=== PATIENT | female | born 1980 | race Caucasian/White ===

== ENCOUNTER 2019-10-08 16:10 | Emergency (ER) | payer BC, SELFPAY ==
[2019-10-08 16:18] VITALS: BP 140/87; PULSE 86; RESP 16; TEMP 37.1; O2SAT 100; BMI 23.3
--- NOTE | 2019-10-08 16:28 | DI.CT.S_ITS ---
PROCEDURE: CT HEAD/BRAIN WO CON INDICATIONS: fell off moving horse about 52 inch height, no LOC TECHNIQUE: Noncontrast 4.5 mm thick angled axial sections acquired from the foramen magnum to the vertex, with coronal and sagittal reformats. For radiation dose reduction, the following was used: automated exposure control, adjustment of mA and/or kV according to patient size. COMPARISON: None. FINDINGS: Image quality: Excellent. CSF spaces: Basal cisterns are patent. No extra-axial fluid collections. Ventricles are normal in size and shape. Brain: No midline shift. No intracranial masses or hemorrhage. Ford-white matter interface is normal. Skull and face: Calvarium and visualized facial bones are intact, without suspicious lesions. Sinuses: Visualized sinuses and mastoids are clear. IMPRESSION: No CT evidence of acute intracranial pathology. Dictated by: Jason Greene M.D. on 10/08/2019 at 16:56 Approved by: Jason Greene M.D. on 10/08/2019 at 16:57
--- NOTE | 2019-10-08 16:30 | ED.FALL ---
HPI - Fall <SANJIV ToureP - Last Filed: 10/08/19 17:39> General Chief Complaint: Fall Stated Complaint: fall from horse,hit head, thinks concussion Time Seen by Provider: 10/08/19 16:14 Source: patient Mode of arrival: Ambulatory Limitations: no limitations History of Present Illness HPI Narrative: This is a 38-year-old female, nonsmoker, who presents to ED with a friend after she fell off from a horse (about 52 inch height) that she was riding. According to her friend, patient fell off on a horse and landed on her right side of the body. The patient was wearing a helmet and helmet had a visor which had been shifted and had a clump of grass stuck in the front of the helmet. Patient and her friend does not think she had loss of consciousness if anything lasted seconds, denies vomiting. Patient reports feeling dizzy and oozy with ambulation. Patient reports posterior all headache. Patient denies pain in her neck, extremities, back, hips. Patient denies breathing difficulty, chest pain. Patient currently has cold symptoms and had taken Advil this morning. Patient currently is not on anticoagulant or anti platelets. Related Data Home Medications Medication Instructions Recorded Confirmed ascorbic acid (vitamin C) 500 mg PO QDAY #0 04/05/17 ferrous sulfate [Iron (ferrous QDAY #0 04/05/17 sulfate)] Previous Rx's Medication Instructions Recorded penicillin V potassium 500 mg PO TID #30 tab 04/05/17 Allergies Allergy/AdvReac Type Severity Reaction Status Date / Time Hydrocodone Allergy Unknown Uncoded 10/08/19 16:21 Review of Systems <Nash Humphries TUBE ROLLER - Last Filed: 10/08/19 17:39> Review of Systems Narrative: General: Denies fever, chills, fatigue, malaise, sweats. HEENT: Reports posterior headache and dizziness. Denies sinus pain, ear pain, sore throat, difficulty swallowing. Respiratory: Denies dyspnea, cough, wheezing, hemoptysis, sputum. Cardiovascular: Denies chest pain, palpitations, orthopnea, edema. Gastrointestinal: Denies nausea, vomiting, abdominal pain, diarrhea, constipation, melena. : Denies dysuria, frequency, incontinence, hematuria, urinary retention. Musculoskeletal: Denies weakness, joint pain or bony pain. Skin: Denies rash, skin lesions, or other. Neurologic: Reports initially confused after fall. Denies weakness, numbness, change in speech, seizures, incoordination. Psychiatric: No concerning psychosocial issues. 12-point review of systems is negative except for those stated above. Patient History <CHELY Toure - Last Filed: 10/08/19 17:39> Medical History Graves disease (Acute) Myasthenia gravis (Acute) Surgical History S/P breast lumpectomy (Acute) Social History Smoking Status: Never smoker Smoking Status: Never smoker Substance Use Type: does not use Exam <CHELY Toure - Last Filed: 10/08/19 17:39> Narrative Exam Narrative: GEN: Alert, oriented x 3, well nourished, and in no acute distress. Head: Normal cephalic, atraumatic. No scalp, crepitus or temporal tenderness, palpable mass or rash. EYES: Pupils are equal, round, and reactive to light and accommodation. Extraocular muscles are intact bilaterally. There is no subconjunctival hemorrhage, exudate and sclera non-icteric. ENT: Bilateral auditory canals and tympanic membranes clear without hemotympanum or drainage. Hearing grossly intact. Nose without bleeding, purulent discharge, clear drainage, septal hematoma or deviation. Turbinate without erythema or swelling. Facial sinuses nontender to palpate. Mucous membrane moist, no mucosal lesion. Throat without erythema, tonsillar hypertrophy or exudate. Uvula in midline, airway patent. Neck: Trachea in midline. No JVD, non-tender without lymphadenopathy. No masses or thyroid megaly. Supple, non-tender, no step-offs and no meningeal signs. CARDIAC: Normal regular rate and rhythm without murmurs, gallops, or rubs. No chest wall tenderness. No peripheral edema, cyanosis or pallor. Capillary refill is less than 2 seconds. No carotid bruits. RESPIRATORY: Lungs are cleat to auscultate bilaterally. No cough, wheezes, rales, or rhonchi. No stridor, respiratory distress, increase work of breathing, or accessary muscle used. ABD: Abdomen soft, nontender and non-distended. No guarding or rebound tenderness to palpate. Bowel sounds are normal in all 4 quadrants. There is no palpable masses or organomegaly. EXT: Full painless ROM of all extremities with no loss of sensation, strength, effusion or edema. SKIN: Warm, dry, normal color for patient. No erythema, lesions or rash. BACK: Nontender without deformity or crepitance. No flank tenderness. NEUROLOGICAL: Alert and oriented to place, time and person. No facial droops, dysphasia. CN II-XII intact. Strength and sensation symmetric and intact throughout. Reflexes 2+ throughout. Cerebellar testing normal. PSYCHIATRIC: Good judgement and reason, without hallucinations, abnormal affect or abnormal behaviors during the examination. Initial Vital Signs Initial Vital Signs: Vital Signs Temperature 98.8 F 10/08/19 16:18 Pulse Rate 86 10/08/19 16:18 Respiratory Rate 16 10/08/19 16:18 Blood Pressure 140/87 10/08/19 16:18 Pulse Oximetry 100 10/08/19 16:18 <Tina Vargas DO - Last Filed: 10/08/19 17:49> Initial Vital Signs Initial Vital Signs: Vital Signs Temperature 98.8 F 10/08/19 16:18 Pulse Rate 86 10/08/19 16:18 Respiratory Rate 16 10/08/19 16:18 Blood Pressure 140/87 10/08/19 16:18 Pulse Oximetry 100 10/08/19 16:18 Scores <CHELY Toure - Last Filed: 10/08/19 17:39> GCS [place] coma scale eye opening: Spontaneous Jocelyne coma scale verbal response: Orientated [place] coma scale motor response: Obey commands Jocelyne coma scale total score: 15 Course <CHELY Toure - Last Filed: 10/08/19 17:39> Orders Ordered: ED Orders 10/08/19 16:28 CT head/brain wo con Stat Vital Signs Vital signs: Vital Signs - 8 hr 10/08/19 16:18 10/08/19 17:10 10/08/19 17:40 Temperature 98.8 F Pulse Rate 86 88 Respiratory Rate 16 17 Blood Pressure 140/87 121/87 Blood Pressure [Left Arm] 121/87 Pulse Oximetry 100 97 98 <Tina Vargas DO - Last Filed: 10/08/19 17:49> Orders Ordered: ED Orders 10/08/19 16:28 CT head/brain wo con Stat Vital Signs Vital signs: Vital Signs - 8 hr 10/08/19 16:18 10/08/19 17:10 10/08/19 17:40 Temperature 98.8 F Pulse Rate 86 88 Respiratory Rate 16 17 Blood Pressure 140/87 121/87 Blood Pressure [Left Arm] 121/87 Pulse Oximetry 100 97 98 MDM - Fall <CHELY Toure - Last Filed: 10/08/19 17:39> Differential Diagnosis Differential diagnosis: Likely concussion without loss of consciousness and other (Closed head injury, fall) Medical Records Attestation: I reviewed the patient's medical records. Imaging Data CT scan - head: Radiologist's Impression: [address] [address] [address] Scan Report Signed Patient: Augusta Oglesby KMR#: [id number] : 1980Acct:[id number] Age/Sex: 38 / FDate of Service: 10/08/19 Loc: ED Accession Number: [id number] Procedure: CT head/brain wo con Ordering Provider: Nash Humphries PROCEDURE: CT HEAD/BRAIN WO CON INDICATIONS: fell off moving horse about 52 inch height, no LOC TECHNIQUE: Noncontrast 4.5 mm thick angled axial sections acquired from the foramen magnum to the vertex, with coronal and sagittal reformats. For radiation dose reduction, the following was used: automated exposure control, adjustment of mA and/or kV according to patient size. COMPARISON: None. FINDINGS: Image quality: Excellent. CSF spaces: Basal cisterns are patent. No extra-axial fluid collections. Ventricles are normal in size and shape. Brain: No midline shift. No intracranial masses or hemorrhage. Ford-white matter interface is normal. Skull and face: Calvarium and visualized facial bones are intact, without suspicious lesions. Sinuses: Visualized sinuses and mastoids are clear. IMPRESSION: No CT evidence of acute intracranial pathology. Dictated by: Jason Greene M.D. on 10/08/2019 at 16:56 Approved by: Jason Greene M.D. on 10/08/2019 at 16:57 [facility] Narrative Medical decision making narrative: This is a 38-year-old female who presents to ED after she fell off a moving hoarse while she was riding around the corner. Patient does not think she had loss of consciousness, denies mid cervical tenderness, is not on currently anticoagulant or antiplatelets. Patient's neuro exam is unremarkable. Patient was initially confused and was unable to remember the number of children she has and reports dizziness and felt woozy. Patient has not vomited or reports vision change. Patient is able to flex, extend, rotate her neck without difficulty or sensory deficit. Patient denies other injuries or pain by palpation and inspection on limbs, chest wall, pelvis, back. Patient declined Tylenol and or Motrin for discomfort at this time. Patient declined chest x-ray and reports no dyspnea. Head CT today was unremarkable. We discussed return precautions such as worsening headache, vomiting, seizure activity, not acting her normal self, vision change any other acute concerns and advised to rest her brain. Patient advised to use [id number] Tylenol and or Motrin as needed for discomfort. Patient instructed to avoid another head injury before her symptoms resolved completely and verbalized understanding and agrees with the treatment plan. Patient states she will be remaining with her family next 24 hour period to be monitored. Modified trauma was called due to patient fell off moving object a horse. Discharge Plan Departure Patient Disposition: Home Clinical Impression: CHI (closed head injury) Qualifiers: Encounter type: initial encounter Qualified Code(s): S09.90XA - Unspecified injury of head, initial encounter Discharge Date/Time: 10/08/19 17:41 Activity Restrictions/Additional Instructions: You have been diagnosed with [closed head injury fell from moving hoarse without loss of consciousness. CT test of your head today without acute findings hemorrhage or intracranial masses.]. What to do: *Take your medications as directed. You can take [id number] Tylenol and or Motrin as needed for discomfort. Please rest your brain and limit screen time, reading, avoid another head injury before fully recover from this head injury. *Follow up with your primary care provider in 2-3 days, call for an appointment. Let them know you were seen in the ED and that we asked you to be seen in follow up. *Return to ED if you have any new, worsening, or concerning symptoms, such as [severe headache, vision change, dizziness, repeated vomiting, seizure, symptoms lasting longer than expected duration, weakness to her extremities, or any acute concerns]. Prescriptions: No Action ascorbic acid (vitamin C) 500 MG tablet 500 mg PO QDAY Qty: 0 RF: 0 ferrous sulfate [Iron (ferrous sulfate)] 325 mg (65 mg iron) tablet QDAY Qty: 0 RF: 0 penicillin V potassium 500 MG tablet 500 mg PO TID Qty: 30 RF: 0 Referrals: Sarah Leiva PA-C [Primary Care Provider] -
[2019-10-08 17:10] VITALS: BP 121/87; O2SAT 97
--- NOTE | 2019-10-08 17:30 | PC.NURSE ---
Concussion packet given to patient.
[2019-10-08 17:40] VITALS: BP 121/87; PULSE 88; RESP 17; O2SAT 98
== END 2019-10-08 17:41 | disposition home or self-care (01) ==
PROVIDERS: Emergency Provider Nurse Practitioner Family; PCP Physician Assistant Medical
DX: S09.8XXA Other specified injuries of head, initial encounter (principal); V80.010A Animal-rider injured by fall from or being thrown from horse in noncollision accident, initial encounter; Y93.52 Activity, horseback riding
CPT/HCPCS: 70450; 99284

== ENCOUNTER → 2023-04-14 14:14 | Outpatient (CLI) | payer BC, SELFPAY ==
--- NOTE | 2023-04-14 14:17 | DI.RAD.S_ITS ---
PROCEDURE: XR FINGER RT MIN 2V INDICATIONS: pulled/poss dislocated at DIP, reduced ROM R/O Fx TECHNIQUE: AP hand, 2 views of the 2nd finger(s) acquired. COMPARISON: None. FINDINGS: Bones: No fractures or dislocations. No suspicious bony lesions. Soft tissues: No suspicious soft tissue calcifications. IMPRESSION: No gross acute 2nd digit fracture or dislocation. No gross soft tissue abnormalities. Dictated by: Jason Greene M.D. on 04/14/2023 at 15:15 Approved by: Jason Greene M.D. on 04/14/2023 at 15:16
== END ==
PROVIDERS: PCP Registered Nurse Diabetes Educator; Referring Provider Student in an Organized Health Care Education/Training Program; Visit Provider Student in an Organized Health Care Education/Training Program
DX: X58.XXXA Exposure to other specified factors, initial encounter; S63.630A Sprain of interphalangeal joint of right index finger, initial encounter
CPT/HCPCS: 73140

== ENCOUNTER → 2023-09-10 13:06 | Outpatient (CLI) | payer BC, SELFPAY ==
[2023-09-10 14:22] LABS: Free T3, Triiodothyronine Free 3.73 pg/mL (2.77-5.27); Free T4, Direct Thyroxine 0.91 ng/dL (0.78-2.19)
[2023-09-10 14:36] LABS: Thyroid Stimulating Hormone 1.95 uIU/mL (0.47-4.68)
[2023-09-10 16:09] LABS: Vitamin D 25 Hydroxy (D3) 41.4 ng/mL (30.0-100.0)
== END ==
PROVIDERS: PCP Registered Nurse Diabetes Educator; Referring Provider Registered Nurse Diabetes Educator; Visit Provider Registered Nurse Diabetes Educator
DX: E05.00 Thyrotoxicosis with diffuse goiter without thyrotoxic crisis or storm (principal); E55.9 Vitamin D deficiency, unspecified
CPT/HCPCS: 36415; 82306; 84439; 84443; 84481

== ENCOUNTER → 2023-09-25 10:04 | Outpatient (CLI) | payer BC, SELFPAY ==
--- NOTE | 2023-09-25 | DI.MG.S_ITS ---
BILATERAL DIGITAL SCREENING MAMMOGRAM 3D/2D WITH CAD: 09/25/2023 CLINICAL: Routine screening. Baseline exam. No prior exams were available for comparison. Both breasts are heterogeneously dense, which may obscure small masses (category c / 51-75% glandular tissue). Current study was also evaluated with a Computer Aided Detection (CAD) system. No significant masses, calcifications, or other findings are seen in either breast. IMPRESSION: NEGATIVE There is no mammographic evidence of malignancy. A 1 year screening mammogram is recommended. Based on the Tyrer Cuzick model (a risk assessment model) the patient's lifetime risk is 12.2% and her 10 year risk is 1.7%. According to the ACR, ACS, and NCCN guidelines, an annual breast MRI exam along with mammogram is recommended if the patient's lifetime risk is 20% or greater. This exam was interpreted at Station ID: [id number]. NOTE: For mammograms, a report in lay terms will be sent to the patient. Approximately 15% of breast malignancies will not be visualized mammographically. In the management of a palpable breast mass, a negative mammogram must not discourage biopsy of a clinically suspicious lesion. Electronically Signed By: Ronni navas/[email or web address]:09/25/2023 12:54:17 letter sent: Normal Exam ACR BI-RADS Category 1: Negative [id number]
== END ==
PROVIDERS: PCP Registered Nurse Diabetes Educator; Referring Provider Registered Nurse Diabetes Educator; Visit Provider Registered Nurse Diabetes Educator
DX: Z12.31 Encounter for screening mammogram for malignant neoplasm of breast (principal)
CPT/HCPCS: 77063; 77067

== ENCOUNTER → 2024-09-13 14:52 | Outpatient (CLI) | payer BC, SELFPAY ==
[2024-09-13 15:35] LABS: Hematocrit 42.1 % (36-46); Hemoglobin 13.9 g/dL (12.0-16.0); Mean Corpuscular HGB Conc 32.9 % (30-36); Mean Corpuscular Hemoglobin 29.1 PG (26-34); Mean Corpuscular Volume 88.2 fL (80-100); Platelet Count 199 X10^3/uL (150-400); Red Blood Cell Count 4.78 X10^6/uL (4.0-5.2); Red Cell Distribution Width 12.3 % (11.6-14.8); White Blood Cell Count 5.2 X10^3/uL (4.5-11.0)
[2024-09-13 18:54] LABS: Alanine Aminotransferase 21 IU/L (<35); Albumin 4.1 g/dL (3.5-5.0); Albumin Globulin Ratio 1.4 (1.0-2.8); Alkaline Phosphatase 41 U/L (38-126); Aspartate Aminotransferase 27 IU/L (14-36); BUN Creatinine Ratio 15.1 (6-22); Bilirubin Total 0.5 mg/dL (0.2-1.3); Blood Urea Nitrogen 11 mg/dL (7-17); Calcium 9.2 mg/dL (8.4-10.2); Carbon Dioxide 26 mmol/L (22-32); Estimated Glomerular Filt Rate > 60 mL/min (>60); Globulin 2.9 g/dL (1.7-4.1); Glucose 88 mg/dL (70-100); HEMOLYSIS < 15 (0-50); Potassium 3.9 mmol/L (3.4-5.1); Sodium 137 mmol/L (137-145)
[2024-09-13 19:06] LABS: Chloride 108 mmol/L (98-107)
[2024-09-13 21:42] LABS: Free T4, Direct Thyroxine 0.95 ng/dL (0.78-2.19)
[2024-09-13 21:56] LABS: Thyroid Stimulating Hormone 2.04 uIU/mL (0.47-4.68)
[2024-09-15 07:36] LABS: Triiodothyronine T3 Total 105 ng/dL (71-180)
== END ==
PROVIDERS: PCP Registered Nurse Diabetes Educator; Referring Provider Registered Nurse Diabetes Educator; Visit Provider Registered Nurse Diabetes Educator
DX: Z01.419 Encounter for gynecological examination (general) (routine) without abnormal findings (principal); E05.00 Thyrotoxicosis with diffuse goiter without thyrotoxic crisis or storm
CPT/HCPCS: 36415; 80053; 84439; 84443; 84480; 85027